=== PATIENT | female | born 1945 | race Caucasian/White ===

== ENCOUNTER 2016-08-09 14:41 | Outpatient (CLI) | payer MEDICARE, MEDICAID ==
[2016-08-09 14:56] LABS: #Lymphocytes 0.9 thou/uL (1.20-3.40); #Monocytes 0.2 thou/uL (0.11-0.59); #Neutrophils 7.8 thou/uL (1.40-6.50); %Basophils 0.5 % (0.0-1.0); %Eosinophils 0.1 % (0.0-10.0); %Lymphocytes 10.2 % (21.0-51.0); %Monocytes 2.5 % (0.0-10.0); %Neutrophils 86.6 % (42.0-75.0); Hemoglobin 16.4 g/dL (12.0-16.0); Mean Corpuscular HGB CONC 32.9 g/dL (32.0-36.0); Mean Corpuscular Hemoglobin 30.7 pg (27.0-31.0); Mean Corpuscular Volume 93.3 fl (81.0-99.0); Mean Platelet Volume 8.6 fL (7.4-10.4); Platelet Count 145 thou/uL (130-400); RBC Distribution Width 14.6 % (11.5-14.5); Red Blood Cell (RBC) Count 5.33 mill/uL (4.20-5.40)
[2016-08-09 15:05] LABS: ALT (SGPT) 24 U/L (0-55); AST (SGOT) 19 U/L (5-34); Albumin 3.8 g/dL (3.4-4.8); Alkaline Phosphatase 85 U/L (40-150); Anion Gap 22 mmol/L (10-20); BUN (Urea Nitrogen) 27 mg/dL (9.8-20.1); Bilirubin, Total 0.5 mg/dL (0.2-1.2); Calc. Creatinine Clearance 0 mL/min (70-130); Calcium 9.3 mg/dL (7.8-10.44); Carbon Dioxide 22 mmol/L (23-31); Chloride 97 mmol/L (98-107); Estimated GFR-MDRD 47; Globulin 2.7 g/dL (2.4-3.5); Glucose 375 mg/dL (80-115); Potassium 4.9 mmol/L (3.5-5.1); Protein, Total 6.5 g/dL (5.8-8.1); Sodium 136 mmol/L (136-145)
== END 2016-08-09 14:42 | disposition home or self-care (01) ==
LOC: MADLAB 14:41
PROVIDERS: ATTEND Student in an Organized Health Care Education/Training Program
DX: G04.81 Other encephalitis and encephalomyelitis (principal)
CPT/HCPCS: 80053; 85025

== ENCOUNTER 2016-10-02 08:16 | Outpatient (CLI) | payer MEDICARE, OTHER ==
[2016-10-02 08:48] LABS: #Basophils 0.2 thou/uL (0.0-0.2); #Eosinphils 0.3 thou/uL (0.0-0.7); #Lymphocytes 4.3 thou/uL (1.20-3.40); #Monocytes 0.8 thou/uL (0.11-0.59); #Neutrophils 5.3 thou/uL (1.40-6.50); %Basophils 1.8 % (0.0-1.0); %Eosinophils 2.7 % (0.0-10.0); %Lymphocytes 39.2 % (21.0-51.0); %Monocytes 7.7 % (0.0-10.0); %Neutrophils 48.7 % (42.0-75.0); Hemoglobin 15.3 g/dL (12.0-16.0); Mean Corpuscular HGB CONC 33.9 g/dL (32.0-36.0); Mean Corpuscular Hemoglobin 32.2 pg (27.0-31.0); Mean Corpuscular Volume 94.8 fl (81.0-99.0); Mean Platelet Volume 8.9 fL (7.4-10.4); Platelet Count 140 thou/uL (130-400); RBC Distribution Width 13.6 % (11.5-14.5); Red Blood Cell (RBC) Count 4.75 mill/uL (4.20-5.40); White Blood Cell (WBC) Count 10.8 thou/uL (4.8-10.8)
[2016-10-02 08:54] LABS: Hemoglobin A1c 7.6 % (4.0-6.0)
[2016-10-02 08:59] LABS: ALT (SGPT) 22 U/L (0-55); AST (SGOT) 15 U/L (5-34); Albumin 3.7 g/dL (3.4-4.8); Alkaline Phosphatase 69 U/L (40-150); Anion Gap 16 mmol/L (10-20); BUN (Urea Nitrogen) 28 mg/dL (9.8-20.1); Bilirubin, Total 0.4 mg/dL (0.2-1.2); Calc. Creatinine Clearance 0 mL/min (70-130); Calcium 9.6 mg/dL (7.8-10.44); Carbon Dioxide 30 mmol/L (23-31); Cardiac Risk 2.3 (Less than 4.5); Chloride 100 mmol/L (98-107); Cholesterol 136 mg/dL (< 200 Desired); Estimated GFR-MDRD 70; Globulin 2.6 g/dL (2.4-3.5); Glucose 116 mg/dL (80-115); HDL Cholesterol 59 mg/dL (>60 Neg Risk); LDL Cholesterol, Calculated 44 mg/dL; Potassium 3.5 mmol/L (3.5-5.1); Protein, Total 6.3 g/dL (5.8-8.1); Sodium 142 mmol/L (136-145)
[2016-10-02 09:09] LABS: Triglycerides 166 mg/dL (Less than 150)
[2016-10-02 17:28] LABS: Creatinine, Urine 126.97 mg/dL (47-110); Microalbumin Urine 2.7 mg/dL (0.5-50.0); Microalbumin/Creat Ratio 21.3 mg/g (Less than 30)
== END 2016-10-02 08:17 ==
LOC: MADLABBHPM 08:16
PROVIDERS: ATTEND Family Medicine
DX: E78.5 Hyperlipidemia, unspecified (principal); D64.9 Anemia, unspecified; E11.9 Type 2 diabetes mellitus without complications
CPT/HCPCS: 36415; 80053; 80061; 82043; 83036; 84443; 85025

== ENCOUNTER 2016-10-13 15:18 | Emergency (ER) | payer MEDICARE, OTHER ==
[2016-10-13] MEDS ORDERED: Tobramycin Sulfate 0.3% Ophth Susp 5 ml Bottle ONE (16:06)
== END 2016-10-13 16:21 | disposition home or self-care (01) ==
LOC: MADERS 15:18
DX: H10.9 Unspecified conjunctivitis (principal); E11.9 Type 2 diabetes mellitus without complications; I12.9 Hypertensive chronic kidney disease with stage 1 through stage 4 chronic kidney disease, or unspecified chronic kidney disease; N18.3 Chronic kidney disease, stage 3 (moderate); F03.90 Unspecified dementia, unspecified severity, without behavioral disturbance, psychotic disturbance, mood disturbance, and anxiety; F41.9 Anxiety disorder, unspecified; F32.9 Major depressive disorder, single episode, unspecified; Z79.4 Long term (current) use of insulin; Z79.899 Other long term (current) drug therapy; Z79.52 Long term (current) use of systemic steroids
CPT/HCPCS: 36416; 99284

== ENCOUNTER 2016-12-10 08:32 | Outpatient (CLI) | payer MEDICARE, OTHER ==
[2016-12-10 09:02] LABS: Hemoglobin A1c 7.7 % (4.0-6.0)
[2016-12-10 09:22] LABS: ALT (SGPT) 19 U/L (8-55); AST (SGOT) 16 U/L (5-34); Albumin 3.7 g/dL (3.4-4.8); Alkaline Phosphatase 64 U/L (40-150); Anion Gap 18 mmol/L (10-20); BUN (Urea Nitrogen) 21 mg/dL (9.8-20.1); Bilirubin, Total 0.6 mg/dL (0.2-1.2); Calc. Creatinine Clearance 0 mL/min (70-130); Calcium 9.4 mg/dL (7.8-10.44); Carbon Dioxide 27 mmol/L (23-31); Chloride 102 mmol/L (98-107); Estimated GFR-MDRD 59; Glucose 142 mg/dL (80-115); Potassium 4.1 mmol/L (3.5-5.1); Protein, Total 6.7 g/dL (6.0-8.3); Sodium 143 mmol/L (136-145)
== END 2016-12-10 08:33 | disposition home or self-care (01) ==
LOC: MADLABBHPM 08:32
PROVIDERS: ATTEND Family Medicine
DX: E11.65 Type 2 diabetes mellitus with hyperglycemia (principal)
CPT/HCPCS: 36415; 80053; 83036

== ENCOUNTER 2017-01-29 08:58 | Outpatient (CLI) | payer MEDICARE, MEDICAID ==
[2017-01-29 09:40] LABS: #Basophils 0.1 thou/uL (0.0-0.2); #Eosinphils 0.2 thou/uL (0.0-0.7); #Lymphocytes 1.5 thou/uL (1.20-3.40); #Monocytes 0.7 thou/uL (0.11-0.59); #Neutrophils 5.7 thou/uL (1.40-6.50); %Basophils 1.6 % (0.0-1.0); %Eosinophils 2.5 % (0.0-10.0); %Lymphocytes 17.9 % (21.0-51.0); %Monocytes 8.8 % (0.0-10.0); %Neutrophils 69.2 % (42.0-75.0); Hemoglobin 14.7 g/dL (12.0-16.0); Mean Corpuscular HGB CONC 33.2 g/dL (32.0-36.0); Mean Corpuscular Hemoglobin 32.3 pg (27.0-31.0); Mean Corpuscular Volume 97.5 fl (81.0-99.0); Mean Platelet Volume 9.2 fL (7.4-10.4); Platelet Count 150 thou/uL (130-400); RBC Distribution Width 14.1 % (11.5-14.5); Red Blood Cell (RBC) Count 4.53 mill/uL (4.20-5.40); White Blood Cell (WBC) Count 8.2 thou/uL (4.8-10.8)
[2017-01-29 10:15] LABS: ALT (SGPT) 19 U/L (8-55); AST (SGOT) 26 U/L (5-34); Albumin 3.6 g/dL (3.4-4.8); Alkaline Phosphatase 67 U/L (40-150); Anion Gap 14 mmol/L (10-20); BUN (Urea Nitrogen) 19 mg/dL (9.8-20.1); Bilirubin, Total 0.9 mg/dL (0.2-1.2); CRP (Inflammatory) Less than 0.50 mg/dL (= or < 0.5); Calc. Creatinine Clearance 0 mL/min (70-130); Calcium 9.2 mg/dL (7.8-10.44); Carbon Dioxide 27 mmol/L (23-31); Chloride 103 mmol/L (98-107); Estimated GFR-MDRD 64; Globulin 2.7 g/dL (2.4-3.5); Glucose 121 mg/dL (80-115); Potassium 3.4 mmol/L (3.5-5.1); Protein, Total 6.3 g/dL (6.0-8.3); Sodium 141 mmol/L (136-145)
== END 2017-01-29 08:59 | disposition home or self-care (01) ==
LOC: MADLABBHPM 08:58
PROVIDERS: ATTEND Student in an Organized Health Care Education/Training Program
DX: R22.40 Localized swelling, mass and lump, unspecified lower limb (principal)
CPT/HCPCS: 36415; 80053; 85025; 85652; 86140; 86160

== ENCOUNTER 2017-03-07 08:41 | Outpatient (CLI) | payer MEDICARE, MEDICAID ==
[2017-03-07 09:29] LABS: #Basophils 0.2 thou/uL (0.0-0.2); #Eosinphils 0.3 thou/uL (0.0-0.7); #Lymphocytes 1.6 thou/uL (1.20-3.40); #Monocytes 0.9 thou/uL (0.11-0.59); #Neutrophils 6.9 thou/uL (1.40-6.50); %Basophils 1.9 % (0.0-1.0); %Eosinophils 3.4 % (0.0-10.0); %Lymphocytes 16.1 % (21.0-51.0); %Monocytes 8.7 % (0.0-10.0); %Neutrophils 69.8 % (42.0-75.0); Hemoglobin 14.7 g/dL (12.0-16.0); Mean Corpuscular HGB CONC 32.1 g/dL (32.0-36.0); Mean Corpuscular Hemoglobin 31.2 pg (27.0-31.0); Mean Corpuscular Volume 97.1 fl (81.0-99.0); Mean Platelet Volume 10.3 fL (7.4-10.4); Platelet Count 176 thou/uL (130-400); RBC Distribution Width 14.1 % (11.5-14.5); Red Blood Cell (RBC) Count 4.72 mill/uL (4.20-5.40); White Blood Cell (WBC) Count 9.9 thou/uL (4.8-10.8)
[2017-03-07 09:39] LABS: ALT (SGPT) 14 U/L (8-55); AST (SGOT) 16 U/L (5-34); Albumin 3.8 g/dL (3.4-4.8); Alkaline Phosphatase 78 U/L (40-150); Anion Gap 16 mmol/L (10-20); BUN (Urea Nitrogen) 21 mg/dL (9.8-20.1); Bilirubin, Total 0.8 mg/dL (0.2-1.2); Calc. Creatinine Clearance 0 mL/min (70-130); Calcium 9.5 mg/dL (7.8-10.44); Carbon Dioxide 29 mmol/L (23-31); Cardiac Risk 2.4 (Less than 4.5); Chloride 104 mmol/L (98-107); Cholesterol 105 mg/dl (< 200 Desired); Estimated GFR-MDRD 65; Globulin 3.2 g/dL (2.4-3.5); Glucose 118 mg/dL (80-115); HDL Cholesterol 44 mg/dL (>60 Neg Risk); LDL Cholesterol, Calculated 38 mg/dL; Potassium 3.4 mmol/L (3.5-5.1); Sodium 146 mmol/L (136-145); Triglycerides 113 mg/dL (Less than 150)
[2017-03-07 09:40] LABS: Hemoglobin A1c 6.1 % (4.0-6.0)
[2017-03-07 09:52] LABS: Free T4 (Free Thyroxine) 0.9 ng/dL (0.70-1.48); Thyroid Stimulating Hormone 3.9807 uIU/mL (0.35-4.94)
[2017-03-07 16:57] LABS: Creatinine, Urine 27.78 mg/dL (47-110); Microalbumin Urine 1.5 mg/dL (0.5-50.0)
== END 2017-03-07 08:42 | disposition home or self-care (01) ==
LOC: MADLAB 08:41
PROVIDERS: ATTEND Family Medicine
DX: E11.65 Type 2 diabetes mellitus with hyperglycemia (principal); E78.5 Hyperlipidemia, unspecified; D64.9 Anemia, unspecified; R22.40 Localized swelling, mass and lump, unspecified lower limb
CPT/HCPCS: 36415; 80053; 80061; 82043; 82728; 83036; 83540; 84439; 84443; 85025

== ENCOUNTER 2017-03-12 13:43 | Inpatient (IN) | payer MEDICARE, MEDICAID ==
[~2017-03-12 13:43] MED LIST: Sodium Chloride 0.9% 100 ML BAG ONE
[2017-03-12 15:55] LABS: #Basophils 0.1 thou/uL (0.0-0.2); #Eosinphils 0.1 thou/uL (0.0-0.7); #Lymphocytes 1.4 thou/uL (1.20-3.40); #Monocytes 0.6 thou/uL (0.11-0.59); #Neutrophils 4.5 thou/uL (1.40-6.50); %Basophils 1.4 % (0.0-1.0); %Eosinophils 1.4 % (0.0-10.0); %Lymphocytes 20.4 % (21.0-51.0); %Monocytes 9.4 % (0.0-10.0); %Neutrophils 67.4 % (42.0-75.0); Hemoglobin 13.9 g/dL (12.0-16.0); Mean Corpuscular HGB CONC 32.3 g/dL (32.0-36.0); Mean Corpuscular Hemoglobin 30.9 pg (27.0-31.0); Mean Corpuscular Volume 95.6 fl (81.0-99.0); Mean Platelet Volume 10.7 fL (7.4-10.4); Platelet Count 201 thou/uL (130-400); RBC Distribution Width 14.2 % (11.5-14.5); White Blood Cell (WBC) Count 6.7 thou/uL (4.8-10.8)
[2017-03-12 16:01] LABS: INR-International Normal Ratio 1.1; Prothrombin Time 13.9 SEC (12.0-14.7)
[2017-03-12 16:18] LABS: ALT (SGPT) 15 U/L (8-55); AST (SGOT) 21 U/L (5-34); Albumin 3.6 g/dL (3.4-4.8); Alkaline Phosphatase 88 U/L (40-150); Anion Gap 14 mmol/L (10-20); BUN (Urea Nitrogen) 16 mg/dL (9.8-20.1); Bilirubin, Total 0.5 mg/dL (0.2-1.2); CK (CPK) 75 U/L (29-168); Calc. Creatinine Clearance 0 mL/min (70-130); Calcium 8.8 mg/dL (7.8-10.44); Carbon Dioxide 29 mmol/L (23-31); Chloride 102 mmol/L (98-107); Estimated GFR-MDRD 62; Globulin 2.5 g/dL (2.4-3.5); Glucose 240 mg/dL (80-115); Potassium 4.3 mmol/L (3.5-5.1); Protein, Total 6.1 g/dL (6.0-8.3); Sodium 141 mmol/L (136-145)
--- NOTE | 2017-03-12 16:19 | RAD ---
PORTABLE CHEST ONE VIEW: 03/12/17 at 3:54 p.m. HISTORY: Fluid retention. FINDINGS: Comparison made to exam of 12/08/15. The heart is enlarged. There is continued elevation of the right hemidiaphragm. No confluent areas o f consolidation or pneumothorax, alec pulmonary edema or pleural effusions are seen. IMPRESSION: No acute process. POS: [facility]
[2017-03-12 16:20] LABS: CKMB 1.6 ng/mL (0-6.6); Troponin I Less than 0.010 ng/mL (< 0.028)
[2017-03-12] MEDS ORDERED: Ketorolac Tromethamine 30 MG/ML VIAL ONE (17:09)
[2017-03-12] MEDS ORDERED: Ondansetron HCl/PF 4 MG/2 ML Vial ONE (17:09)
[2017-03-12] MEDS ORDERED: Dexamethasone 10 MG/ML VIAL ONE (17:28)
[2017-03-12] MEDS ORDERED: methylPREDNISolone Sod Succ/PF 125 MG/2 ML VIAL ONE (17:28)
[2017-03-12 18:02] LABS: Bilirubin Negative (Negative); Blood, Urine Negative (Negative); Clarity Clear (Clear); Glucose, Urine (Dipstick) Negative (Negative); Leukocyte Negative (Negative); Nitrite Negative (Negative); Protein, Urine (Dipstick) Negative (Neg-Trace); Urobilinogen 0.2 mg/dL (0.2-1.0)
[2017-03-12 18:03] LABS: RBC/HPF 0-3 HPF (0-3)
[2017-03-12 18:04] LABS: Bacteria/HPF Rare-Few HPF (None Seen); WBC/HPF 0-3 HPF (0-3)
[2017-03-12] MEDS ORDERED: Enoxaparin Sodium 40 MG/0.4 ML SYRINGE ONE (19:00)
--- NOTE | 2017-03-12 19:34 | RAD ---
FOUR VIEWS OF THE RIGHT KNEE: 03/12/17 COMPARISON: None. HISTORY: Right knee pain with swelling. FINDINGS: Four views of the right knee shows no evidence of acute fracture or dislocation. Severe diffuse soft tissue swelling is seen. No significant degenerative changes are seen. No knee effusion is seen. IMPRESSION: Soft tissue swelling without underlying osseous abnormality. POS: [facility]
[2017-03-13] MEDS ORDERED: Dextrose 5% in Water 1,000 ML IV PRN (00:20)
[2017-03-13] MEDS ORDERED: Dextrose 50% Abboject 50 ML SYRINGE IVP PRN (00:21)
[2017-03-13] MEDS ORDERED: Furosemide 20 MG/2 ML VIAL SLOW IVP SCH (00:30)
[2017-03-13] MEDS ORDERED: predniSONE 20 MG TAB PO SCH ×3 (01:30→09:30)
[2017-03-13] MEDS ORDERED: Bisacodyl 5 MG TAB PO PRN (01:37)
[2017-03-13] MEDS ORDERED: Zolpidem Tartrate 5 MG TAB PO PRN ×2 (01:37→10:07)
[2017-03-13] MEDS ORDERED: Loperamide HCl 2 MG CAP PO PRN ×2 (01:37)
[2017-03-13] MEDS ORDERED: Ondansetron HCl/PF 4 MG/2 ML Vial SLOW IVP PRN (01:37)
[2017-03-13] MEDS ORDERED: HYDROcodone/Acetaminophen 10/325 mg Tablet PO PRN (01:37)
[2017-03-13 02:11] VITALS: BMI 40.5
[2017-03-13 05:29] LABS: #Lymphocytes 0.7 thou/uL (1.20-3.40); #Monocytes 0.3 thou/uL (0.11-0.59); #Neutrophils 6.5 thou/uL (1.40-6.50); %Basophils 0.5 % (0.0-1.0); %Lymphocytes 9.8 % (21.0-51.0); %Monocytes 3.5 % (0.0-10.0); %Neutrophils 86.1 % (42.0-75.0); Hemoglobin 14.3 g/dL (12.0-16.0); Mean Corpuscular HGB CONC 33.3 g/dL (32.0-36.0); Mean Platelet Volume 9.8 fL (7.4-10.4); Platelet Count 177 thou/uL (130-400); RBC Distribution Width 13.8 % (11.5-14.5); Red Blood Cell (RBC) Count 4.47 mill/uL (4.20-5.40); White Blood Cell (WBC) Count 7.5 thou/uL (4.8-10.8)
[2017-03-13 05:41] LABS: ALT (SGPT) 13 U/L (8-55); AST (SGOT) 14 U/L (5-34); Albumin 3.5 g/dL (3.4-4.8); Alkaline Phosphatase 72 U/L (40-150); Anion Gap 14 mmol/L (10-20); BUN (Urea Nitrogen) 19 mg/dL (9.8-20.1); Bilirubin, Total 0.4 mg/dL (0.2-1.2); Calc. Creatinine Clearance 94 mL/min (70-130); Carbon Dioxide 29 mmol/L (23-31); Chloride 103 mmol/L (98-107); Estimated GFR-MDRD 59; Globulin 3.1 g/dL (2.4-3.5); Glucose 237 mg/dL (80-115); Potassium 4.7 mmol/L (3.5-5.1); Protein, Total 6.6 g/dL (6.0-8.3); Sodium 141 mmol/L (136-145)
[2017-03-13] MEDS: HumaLOG 300 UNITS/3 ML VIAL SC PRN ×3 (07:56→22:15)
[2017-03-13] MEDS: Enoxaparin Sodium 40 MG/0.4 ML SYRINGE SC SCH (07:59)
[2017-03-13] MEDS ORDERED: Ketotifen Fumarate 0.025% Ophth Soln 5 ml Bottle EA EYE PRN (08:30)
[2017-03-13] MEDS ORDERED: Acetaminophen 325 MG TAB PO PRN (08:30)
[2017-03-13] MEDS ORDERED: cloNIDine HCl 0.1 MG TAB PO PRN (08:30)
[2017-03-13] MEDS ORDERED: Melatonin 3 MG TAB PO PRN (08:30)
[2017-03-13] MEDS ORDERED: Furosemide 40 MG TAB PO SCH (09:00)
[2017-03-13] MEDS ORDERED: predniSONE 10 MG TAB PO SCH (09:00)
[2017-03-13] MEDS ORDERED: Pantoprazole 40 MG VIAL IVP SCH (09:00)
[2017-03-13] MEDS ORDERED: Mag-Al Plus 1200 MG/1200 MG/120 MG/30 ML UDCUP PO PRN (09:06)
[2017-03-13] MEDS ORDERED: Furosemide 40 MG/4 ML VIAL SLOW IVP SCH (09:30)
[2017-03-13] MEDS ORDERED: Sodium Chloride 0.9% 10 ML ONE (09:49)
[2017-03-13] MEDS: Levemir Flexpen 100 UNITS/ML PEN SC SCH (09:55)
[2017-03-13] MEDS: Famotidine 20 MG TAB PO SCH ×2 (09:56→22:10)
[2017-03-13] MEDS: Doxepin HCl 25 MG CAP PO SCH (09:56)
[2017-03-13] MEDS: Loratadine 10 MG TAB PO SCH (09:56)
[2017-03-13] MEDS: Pregabalin 50 MG CAP PO SCH ×2 (09:57→22:11)
[2017-03-13] MEDS: HYDROcodone/Acetaminophen 10/325 mg Tablet PO PRN ×3 (09:58→22:14)
[2017-03-13] MEDS: azaTHIOprine 50 MG TAB PO SCH ×2 (09:59→22:11)
[2017-03-13] MEDS: Hydroxychloroquine Sulfate 200 MG TAB PO SCH ×2 (10:00→22:13)
[2017-03-13] MEDS: Ferrous Sulfate 325 MG TAB PO SCH ×2 (10:00→22:11)
[2017-03-13] MEDS: Potassium Chloride 20 MEQ TAB PO SCH (10:00)
[2017-03-13] MEDS: Losartan Potassium 25 MG TAB PO SCH (10:01)
[2017-03-13] MEDS: risperiDONE 0.5 MG TAB PO SCH ×3 (10:02→22:13)
[2017-03-13] MEDS: Escitalopram Oxalate 10 mg Tablet PO SCH (10:02)
[2017-03-13] MEDS: Metoprolol Tartrate 50 MG TAB PO SCH ×2 (10:02→22:10)
[2017-03-13] MEDS: Bupropion 100 MG SR TAB PO SCH (10:10)
[2017-03-13] MEDS: Atorvastatin Calcium 10 MG TAB PO SCH (22:08)
[2017-03-13] MEDS: NUEDEXTA PO SCH (22:10)
--- NOTE | 2017-03-13 23:30 | HP ---
ATTENDING PHYSICIAN: Ritika Jerez M.D. HISTORY OF PRESENT ILLNESS: Ms. Moscoso is a very pleasant 71-year-old female with multiple chronic medical conditions including lupus, neuropathic pain, hypertension, chronic leg edema, arthritis and chronic kidney disease. Patient has had history of unsteady gait. She has been staying in her wheelchair lately. Patient reports significant weight gain since she started residing in assisted living. She blames weight gain from the chronic use of high dose steroids for lupus cerebritis. Her neurologist, Dr. Alise Delgado, has been titrating her oral steroid down lately and currently on 10 mg p.o. daily. The patient reports that she has been retaining fluids. When she was seen in the clinic on 03/10/2017, here Lasix was increased to 40 mg p.o. daily as there was a significant evidence of volume retention on both lower legs with both lower legs having pitted skin up. She was sent to the ER from the assisted living facility yesterday due to a complaint of sudden onset of right knee pain. Patient states that there was tightness in the medial side of the right knee. There was no significant erythema or joint effusion. She just complained that the knee is hurting and legs are swollen. Patient reports that she cannot bend her knee at all today due to pain. Xray of the knee showed evidence of soft tissue swelling without underlying osseous abnormality of the right knee x-ray. There is no significant degenerative changes seen, no joint effusion was seen. No evidence of acute fracture nor dislocation as well. Chest x-ray showed enlarged heart with continued elevation of the right hemidiaphragm, no confluence of consolidation or pneumothorax, alec pulmonary edema or pleural effusions are seen. Initial labs showed WBC of 6.7, hemoglobin 13.9, hematocrit 43 and platelets 201 with a BNP of 91.8, CK 68, BUN 16, creatinine 0.90, CK-MB 1.6 and troponin less than 0.08. C-reactive protein less than 0.50. PT 13.9, INR 1.1 and APTT 27. Urine was unremarkable. In the ER, patient received Duramorph, Decadron, Solu-Medrol, Toradol intravenous and Lovenox. Patient reports significant improvement of pain since , but wanting to be admitted for pain control. Thus steph was admitted in [facility] for arthralgia, acute gouty arthropathy, worsening volume retention and general weakness. Patient was started on [place] for pain control, high dose steroid for antiinflammatory and IV lasix for diuretic. Patient had a smooth course overnight. When seen, patient reports marked improvement of pain but there was some recurrence of pain noted this morning in the same area of the right knee. She again reports tightness on the right knee. Her legs remain ro have pitted edema. There is no significant chest pain, shortness of breath, pain with breathing, fever, cuff pain, erythema or leg claudication reported . No other new issues reported. PAST MEDICAL HISTORY: 1. Hypertension. 2. Depression. 3. Anxiety. 4. Neuropathic pain. 5. Hyperlipidemia. 6. Diabetes type 2 complicated. 7. History of recurrent complicated urinary tract infection. 8. Unsteady gait. 9. 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 10. History of chronic kidney disease stage 3. 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 12. Anemia, normocytic and normochromic, status post blood transfusion. 13. History of dysphagia, status post percutaneous endoscopic gastrostomy placement. 14. History of gastrointestinal bleed, rectal ulcer and ischemic colitis. 15. History of protein-calorie malnutrition. 16. History of ischemic colitis. 17. History of encephalopathy deemed secondary to lupus. PAST SURGICAL HISTORY: Tonsillectomy, adenectomy, status post percutaneous endoscopic gastrostomy tube placement and removal. FAMILY HISTORY: Daughter is alive with diabetes. SOCIAL HISTORY: Patient is a nonsmoker. Alcohol beverage drinker. She lives in [facility]. ALLERGIES: NKDA. MEDICATIONS: 1. Simvastatin 20 mg p.o. at bedtime. 2. Lantus 45 units subcu q. day. 3. NovoLog FlexPen for sliding scale coverage. 4. Acetaminophen 650 mg p.o. q.4 hours p.r.n. 5. Vitamin D3 q. day. 6. Lasix 40 mg p.o. daily. 7. Ranitidine 150 mg p.o. b.i.d. 8. Doxepin 50 mg p.o. daily. 9. Bupropion XR 300 mg p.o. daily. 10. Ferrous sulfate 325 mg p.o. daily. 11. Nuedexta 20/10 mg capsule q.12 hours. 12. Risperdal 0.5 mg p.o. 3 times a day. 13. Prednisone 10 mg p.o. daily. 14. Losartan 100 mg p.o. daily. 15. Metoprolol 50 mg p.o. b.i.d. 16. Clonidine 0.1 mg p.o. b.i.d. p.r.n. for blood pressure greater than or equal to systolic 180 and/or diastolic 100. 17. Melatonin 3 mg 1-2 tablets at bedtime. 18. Azathioprine 50 mg 2 tablets in the morning and 1 tablet at bedtime b.i.d. 19. Hydroxychloroquine 200 mg p.o. b.i.d. 20. Lyrica 50 mg p.o. b.i.d. 21. Loratadine 10 mg p.o. daily. REVIEW OF SYSTEMS: General: Denies fever, chills, reports general weakness and fatigue. HEENT: No acute visual changes or hearing changes, cold symptoms. Respiratory: No shortness of breath, cough, sputum production or bloody in sputum. Cardiovascular: Denies chest pain, dyspnea on exertion, paroxysmal nocturnal dyspnea or palpitations. Gastrointestinal: No nausea, vomiting, abdominal pain, diarrhea, constipation or rectal bleeding. Genitourinary: No dysuria, hematuria, frequency, urgency or incontinence. Musculoskeletal: As per HPI. Neurologic: No focal numbness or focal weakness. Psychiatric: Reports depressive symptoms and anxiety are stable with current medications. No hallucinations. No suicidal thoughts or ideations. PHYSICAL EXAMINATION: VITAL SIGNS: Temperature 98.4, pulse 79, respirations 16, O2 sats 94% and blood pressure 132/59. Weight 236 pounds. Height 5 feet 4 inches. GENERAL: The patient is awake, alert and oriented x3, not in distress. HEENT: Normocephalic and atraumatic. PERRL, intact. EOM. Nonicteric sclerae. Oral mucosa is moist. NECK: Supple. No LAD, no JVD, no bruit. CHEST: Normal excursion. Clear to auscultation bilaterally. CARDIAC: RRR. Normal S1 and S2. No murmurs. ABDOMEN: Obese, limiting exam. Normoactive bowel sounds. Nondistended and nontender. No rebound, no guarding. Negative cerebrovascular accident tenderness bilaterally. EXTREMITIES: Pitted bipedal edema up to the thigh. No obvious joint effusions. No erythema, no joint swelling. Tender to touch right medial and right anterior knee. Limited range of motion of the right knee secondary to discomfort/pain. Pulse 1+ bilaterally. NEUROLOGIC: Nonfocal. DTRs 2+. Unsteady gait. PSYCHIATRIC: Appears calm with appropriate demeanor and affect. Nonsuicidal. ASSESSMENT AND PLAN: 1. Acute arthropathy, right knee. 2. Bilateral leg edema. 3. Cardiomegaly by chest x-ray with normal BNP. 4. Diabetes type 2. 5. Hypertension. 6. Depression. 7. Anxiety. 8. Systemic lupus erythematosus, complicated with cerebritis, psychosis. 9. Neuropathic pain. 10. Dyslipidemia. 11. History of psychosis. 12. Unsteady gait. 13. General weakness/Deconditioning. PLAN: The patient is admitted to [facility] for supportive medical management. We will continue oral steroid and a taper the dose appropriately Close monitoring of Accu-Cheks secondary to steroid intake. We will continue current medications as modified per list. Gastrointestinal prophylaxis with Protonix. Deep venous thrombosis prophylaxis with Lovenox. We will continue IV diuretic then switch to oral accordingly. Serial electrolytes and renal monitoring. I's and O's weight monitoring. Further recommendations depending on the hospital course. EXPECTED LENGTH OF STAY: 2-3 days. CODE STATUS: FULL CODE. MTDD
[2017-03-14] MEDS ORDERED: predniSONE 20 MG TAB PO SCH ×3 (08:00→10:30)
[2017-03-14] MEDS: Enoxaparin Sodium 40 MG/0.4 ML SYRINGE SC SCH (08:27)
[2017-03-14] MEDS: Levemir Flexpen 100 UNITS/ML PEN SC SCH (08:27)
[2017-03-14] MEDS: NUEDEXTA PO SCH ×2 (08:28→20:35)
[2017-03-14] MEDS: Loratadine 10 MG TAB PO SCH (08:29)
[2017-03-14] MEDS: Bupropion 100 MG SR TAB PO SCH (08:29)
[2017-03-14] MEDS: Ferrous Sulfate 325 MG TAB PO SCH ×2 (08:29→20:38)
[2017-03-14] MEDS: Escitalopram Oxalate 10 mg Tablet PO SCH (08:30)
[2017-03-14] MEDS: Potassium Chloride 20 MEQ TAB PO SCH (08:30)
[2017-03-14] MEDS: Doxepin HCl 25 MG CAP PO SCH (08:30)
[2017-03-14] MEDS: Pregabalin 50 MG CAP PO SCH ×2 (08:30→20:36)
[2017-03-14] MEDS: risperiDONE 0.5 MG TAB PO SCH ×3 (08:30→20:38)
[2017-03-14] MEDS: Metoprolol Tartrate 50 MG TAB PO SCH (08:30)
[2017-03-14] MEDS: Losartan Potassium 25 MG TAB PO SCH (08:32)
[2017-03-14] MEDS: azaTHIOprine 50 MG TAB PO SCH ×2 (08:32→20:36)
[2017-03-14] MEDS: Hydroxychloroquine Sulfate 200 MG TAB PO SCH ×2 (08:32→20:38)
[2017-03-14] MEDS: Famotidine 20 MG TAB PO SCH ×2 (08:32→20:38)
[2017-03-14] MEDS: HYDROcodone/Acetaminophen 10/325 mg Tablet PO PRN (08:38)
[2017-03-14] MEDS ORDERED: Furosemide 20 MG TAB PO SCH (10:15)
[2017-03-14] MEDS: HumaLOG 300 UNITS/3 ML VIAL SC PRN ×2 (17:08→20:34)
[2017-03-14] MEDS: Atorvastatin Calcium 10 MG TAB PO SCH (20:35)
[2017-03-15] MEDS: Metoprolol Tartrate 50 MG TAB PO SCH ×2 (07:25→08:42)
[2017-03-15] MEDS ORDERED: predniSONE 20 MG TAB PO SCH (08:00)
[2017-03-15] MEDS: Bupropion 100 MG SR TAB PO SCH (08:40)
[2017-03-15] MEDS: Losartan Potassium 25 MG TAB PO SCH (08:40)
[2017-03-15] MEDS: azaTHIOprine 50 MG TAB PO SCH (08:41)
[2017-03-15] MEDS: risperiDONE 0.5 MG TAB PO SCH ×2 (08:41→15:24)
[2017-03-15] MEDS: Pregabalin 50 MG CAP PO SCH (08:41)
[2017-03-15] MEDS: Loratadine 10 MG TAB PO SCH (08:42)
[2017-03-15] MEDS: Ferrous Sulfate 325 MG TAB PO SCH (08:42)
[2017-03-15] MEDS: Hydroxychloroquine Sulfate 200 MG TAB PO SCH (08:42)
[2017-03-15] MEDS: Famotidine 20 MG TAB PO SCH (08:42)
[2017-03-15] MEDS: NUEDEXTA PO SCH (08:43)
[2017-03-15] MEDS: Escitalopram Oxalate 10 mg Tablet PO SCH (08:43)
[2017-03-15] MEDS: Doxepin HCl 25 MG CAP PO SCH (08:43)
[2017-03-15] MEDS: Potassium Chloride 20 MEQ TAB PO SCH (08:43)
[2017-03-15] MEDS: Enoxaparin Sodium 40 MG/0.4 ML SYRINGE SC SCH (08:44)
[2017-03-15] MEDS: Levemir Flexpen 100 UNITS/ML PEN SC SCH (08:44)
[2017-03-15] MEDS ORDERED: Furosemide 20 MG TAB PO SCH (09:00)
[2017-03-15] MEDS: HumaLOG 300 UNITS/3 ML VIAL SC PRN ×2 (11:59→17:18)
[2017-03-15 17:04] VITALS: BP 139/90; TEMP 98.6
== END 2017-03-15 17:43 | DRG 554 ==
LOC: MADERS 13:43 → MADMS 19:29
PROVIDERS: ADMIT Family Medicine; ATTEND Family Medicine
DX: M17.11 Unilateral primary osteoarthritis, right knee (principal); E46 Unspecified protein-calorie malnutrition; M32.19 Other organ or system involvement in systemic lupus erythematosus; E11.22 Type 2 diabetes mellitus with diabetic chronic kidney disease; E11.40 Type 2 diabetes mellitus with diabetic neuropathy, unspecified; N18.3 Chronic kidney disease, stage 3 (moderate); Z68.41 Body mass index [BMI] 40.0-44.9, adult; Z79.52 Long term (current) use of systemic steroids; R60.0 Localized edema; M10.9 Gout, unspecified; R60.9 Edema, unspecified; I51.7 Cardiomegaly; F41.9 Anxiety disorder, unspecified; F32.9 Major depressive disorder, single episode, unspecified; E78.5 Hyperlipidemia, unspecified; R26.81 Unsteadiness on feet; I12.9 Hypertensive chronic kidney disease with stage 1 through stage 4 chronic kidney disease, or unspecified chronic kidney disease; D64.9 Anemia, unspecified; R13.10 Dysphagia, unspecified; Z93.1 Gastrostomy status
CPT/HCPCS: 36415; 36416; 71010; 80053; 81001; 82550; 82553; 83880; 84484; 85025; 85610; 85652; 85730; 86140; 87077; 87086; 87186; 93005; 94760; 96365; 96372; 96375; 96376; A4216; C9113; J1100; J1650; J1815; J1885; J1940; J2270; J2405; J2930; J7050; J7500; J7506

== ENCOUNTER 2017-03-15 17:29 | Inpatient (IN) | payer MEDICARE, MEDICAID ==
[2017-03-15] MEDS ORDERED: Acetaminophen 325 MG TAB PO PRN (19:38)
[2017-03-15] MEDS ORDERED: Mag-Al Plus 1200 MG/1200 MG/120 MG/30 ML UDCUP PO PRN ×2 (19:38→20:24)
[2017-03-15] MEDS ORDERED: Melatonin 3 MG TAB PO PRN (19:38)
[2017-03-15] MEDS ORDERED: Bisacodyl 5 MG TAB PO PRN (19:38)
[2017-03-15] MEDS ORDERED: cloNIDine HCl 0.1 MG TAB PO PRN (19:38)
[2017-03-15] MEDS ORDERED: Ketotifen Fumarate 0.025% Ophth Soln 5 ml Bottle EA EYE PRN (19:38)
[2017-03-15] MEDS ORDERED: Loperamide HCl 2 MG CAP PO PRN ×2 (19:38)
[2017-03-15] MEDS ORDERED: Dextrose 5% in Water 1,000 ML IV PRN (19:56)
[2017-03-15] MEDS ORDERED: Dextrose 50% Abboject 50 ML SYRINGE SLOW IVP PRN (19:56)
[2017-03-15] MEDS ORDERED: Famotidine 20 MG TAB PO SCH (21:00)
[2017-03-15] MEDS ORDERED: QUINIDINE PO SCH (21:00)
[2017-03-15] MEDS ORDERED: DEXTROMETHORPHAN HBR PO SCH (21:00)
[2017-03-15] MEDS: Famotidine 20 MG TAB PO SCH (22:13)
[2017-03-15] MEDS: Atorvastatin Calcium 10 MG TAB PO SCH (22:13)
[2017-03-15] MEDS: azaTHIOprine 50 MG TAB PO SCH (22:13)
[2017-03-15] MEDS: Pregabalin 50 MG CAP PO SCH (22:14)
[2017-03-15] MEDS: Metoprolol Tartrate 50 MG TAB PO SCH (22:14)
[2017-03-15] MEDS: Hydroxychloroquine Sulfate 200 MG TAB PO SCH (22:14)
[2017-03-15] MEDS: risperiDONE 0.5 MG TAB PO SCH (22:16)
[2017-03-16] MEDS: Bupropion 100 MG SR TAB PO SCH (08:16)
[2017-03-16] MEDS: Famotidine 20 MG TAB PO SCH ×2 (08:17→20:24)
[2017-03-16] MEDS: Doxepin HCl 25 MG CAP PO SCH ×2 (08:17→08:21)
[2017-03-16] MEDS: Metoprolol Tartrate 50 MG TAB PO SCH ×2 (08:17→20:28)
[2017-03-16] MEDS: Loratadine 10 MG TAB PO SCH (08:17)
[2017-03-16] MEDS: risperiDONE 0.5 MG TAB PO SCH ×3 (08:18→20:30)
[2017-03-16] MEDS: Ferrous Sulfate 325 MG TAB PO SCH ×2 (08:18→17:05)
[2017-03-16] MEDS: predniSONE 20 MG TAB PO SCH (08:18)
[2017-03-16] MEDS: Escitalopram Oxalate 10 mg Tablet PO SCH (08:18)
[2017-03-16] MEDS: Furosemide 20 MG TAB PO SCH (08:18)
[2017-03-16] MEDS: Potassium Chloride 20 MEQ TAB PO SCH (08:18)
[2017-03-16] MEDS: Losartan Potassium 25 MG TAB PO SCH (08:19)
[2017-03-16] MEDS: Hydroxychloroquine Sulfate 200 MG TAB PO SCH ×2 (08:19→20:26)
[2017-03-16] MEDS: Pregabalin 50 MG CAP PO SCH ×2 (08:19→20:26)
[2017-03-16] MEDS: Levemir Flexpen 100 UNITS/ML PEN SC SCH (08:20)
[2017-03-16] MEDS: Enoxaparin Sodium 40 MG/0.4 ML SYRINGE SC SCH (08:21)
[2017-03-16] MEDS: HYDROcodone/Acetaminophen 10/325 mg Tablet PO PRN (08:34)
[2017-03-16] MEDS ORDERED: azaTHIOprine 50 MG TAB PO SCH (10:00)
[2017-03-16] MEDS: Insulin Regular 300 UNITS/3 ML VIAL SC PRN ×3 (11:52→20:41)
[2017-03-16] MEDS: Atorvastatin Calcium 10 MG TAB PO SCH (20:23)
[2017-03-16] MEDS: azaTHIOprine 50 MG TAB PO SCH (20:24)
[2017-03-17] MEDS: Ferrous Sulfate 325 MG TAB PO SCH ×2 (07:38→16:20)
[2017-03-17] MEDS: predniSONE 20 MG TAB PO SCH (07:39)
[2017-03-17] MEDS: HYDROcodone/Acetaminophen 10/325 mg Tablet PO PRN (08:12)
[2017-03-17] MEDS: Bupropion 100 MG SR TAB PO SCH (08:14)
[2017-03-17] MEDS: azaTHIOprine 50 MG TAB PO SCH ×2 (08:14→20:26)
[2017-03-17] MEDS: Doxepin HCl 25 MG CAP PO SCH ×2 (08:15→08:16)
[2017-03-17] MEDS: Enoxaparin Sodium 40 MG/0.4 ML SYRINGE SC SCH (08:17)
[2017-03-17] MEDS: Escitalopram Oxalate 10 mg Tablet PO SCH (08:18)
[2017-03-17] MEDS: Famotidine 20 MG TAB PO SCH ×2 (08:18→20:27)
[2017-03-17] MEDS: Hydroxychloroquine Sulfate 200 MG TAB PO SCH ×2 (08:19→20:28)
[2017-03-17] MEDS: Furosemide 20 MG TAB PO SCH (08:19)
[2017-03-17] MEDS: Levemir Flexpen 100 UNITS/ML PEN SC SCH (08:19)
[2017-03-17] MEDS: Losartan Potassium 25 MG TAB PO SCH (08:20)
[2017-03-17] MEDS: Loratadine 10 MG TAB PO SCH (08:20)
[2017-03-17] MEDS: Metoprolol Tartrate 50 MG TAB PO SCH ×2 (08:20→20:28)
[2017-03-17] MEDS: Potassium Chloride 20 MEQ TAB PO SCH (08:21)
[2017-03-17] MEDS: Pregabalin 50 MG CAP PO SCH ×2 (08:21→20:28)
[2017-03-17] MEDS: risperiDONE 0.5 MG TAB PO SCH ×3 (08:21→20:30)
[2017-03-17] MEDS ORDERED: Escitalopram Oxalate 10 mg Tablet PO SCH (09:00)
[2017-03-17] MEDS: Insulin Regular 300 UNITS/3 ML VIAL SC PRN ×2 (11:41→17:03)
[2017-03-17] MEDS: Atorvastatin Calcium 10 MG TAB PO SCH (20:26)
[2017-03-18 04:28] VITALS: BMI 38.6
[2017-03-18] MEDS: Enoxaparin Sodium 40 MG/0.4 ML SYRINGE SC SCH (08:18)
[2017-03-18] MEDS: Bupropion 100 MG SR TAB PO SCH (08:18)
[2017-03-18] MEDS: Escitalopram Oxalate 10 mg Tablet PO SCH (08:19)
[2017-03-18] MEDS: Hydroxychloroquine Sulfate 200 MG TAB PO SCH ×2 (08:19→20:13)
[2017-03-18] MEDS: Famotidine 20 MG TAB PO SCH ×2 (08:19→20:13)
[2017-03-18] MEDS: azaTHIOprine 50 MG TAB PO SCH ×2 (08:19→20:13)
[2017-03-18] MEDS: Loratadine 10 MG TAB PO SCH (08:20)
[2017-03-18] MEDS: risperiDONE 0.5 MG TAB PO SCH ×3 (08:20→20:14)
[2017-03-18] MEDS: Pregabalin 50 MG CAP PO SCH ×2 (08:20→20:13)
[2017-03-18] MEDS: Potassium Chloride 20 MEQ TAB PO SCH (08:20)
[2017-03-18] MEDS: predniSONE 20 MG TAB PO SCH (08:21)
[2017-03-18] MEDS: Losartan Potassium 25 MG TAB PO SCH (08:21)
[2017-03-18] MEDS: Furosemide 20 MG TAB PO SCH (08:22)
[2017-03-18] MEDS: Doxepin HCl 25 MG CAP PO SCH (08:22)
[2017-03-18] MEDS: Ferrous Sulfate 325 MG TAB PO SCH ×2 (08:23→17:02)
[2017-03-18] MEDS: Metoprolol Tartrate 50 MG TAB PO SCH ×2 (08:23→20:13)
[2017-03-18] MEDS: Levemir Flexpen 100 UNITS/ML PEN SC SCH (08:23)
[2017-03-18] MEDS ORDERED: predniSONE 20 MG TAB PO SCH (09:00)
[2017-03-18] MEDS: Insulin Regular 300 UNITS/3 ML VIAL SC PRN ×3 (11:49→20:23)
[2017-03-18] MEDS: Atorvastatin Calcium 10 MG TAB PO SCH (20:14)
[2017-03-18] MEDS: HYDROcodone/Acetaminophen 10/325 mg Tablet PO PRN (22:33)
[2017-03-18] MEDS: Zolpidem Tartrate 5 MG TAB PO PRN (22:36)
[2017-03-19] MEDS: Ferrous Sulfate 325 MG TAB PO SCH ×2 (08:18→16:43)
[2017-03-19] MEDS: azaTHIOprine 50 MG TAB PO SCH ×2 (08:19→21:04)
[2017-03-19] MEDS: predniSONE 20 MG TAB PO SCH (08:19)
[2017-03-19] MEDS: Famotidine 20 MG TAB PO SCH ×2 (08:20→21:05)
[2017-03-19] MEDS: Escitalopram Oxalate 10 mg Tablet PO SCH (08:20)
[2017-03-19] MEDS: Doxepin HCl 25 MG CAP PO SCH (08:20)
[2017-03-19] MEDS: Enoxaparin Sodium 40 MG/0.4 ML SYRINGE SC SCH (08:20)
[2017-03-19] MEDS: Bupropion 100 MG SR TAB PO SCH (08:20)
[2017-03-19] MEDS: Furosemide 20 MG TAB PO SCH (08:21)
[2017-03-19] MEDS: Hydroxychloroquine Sulfate 200 MG TAB PO SCH ×2 (08:21→21:04)
[2017-03-19] MEDS: Levemir Flexpen 100 UNITS/ML PEN SC SCH (08:21)
[2017-03-19] MEDS: Metoprolol Tartrate 50 MG TAB PO SCH ×2 (08:21→21:05)
[2017-03-19] MEDS: Losartan Potassium 25 MG TAB PO SCH (08:21)
[2017-03-19] MEDS: Potassium Chloride 20 MEQ TAB PO SCH (08:21)
[2017-03-19] MEDS: Loratadine 10 MG TAB PO SCH (08:21)
[2017-03-19] MEDS: Pregabalin 50 MG CAP PO SCH ×2 (08:22→21:04)
[2017-03-19] MEDS: risperiDONE 0.5 MG TAB PO SCH ×3 (08:22→21:04)
[2017-03-19] MEDS: Atorvastatin Calcium 10 MG TAB PO SCH (21:04)
[2017-03-19] MEDS: Insulin Regular 300 UNITS/3 ML VIAL SC PRN (21:05)
[2017-03-19] MEDS: Zolpidem Tartrate 5 MG TAB PO PRN (21:12)
[2017-03-19] MEDS: HYDROcodone/Acetaminophen 10/325 mg Tablet PO PRN (21:12)
[2017-03-20] MEDS: Levemir Flexpen 100 UNITS/ML PEN SC SCH (08:55)
[2017-03-20] MEDS: Enoxaparin Sodium 40 MG/0.4 ML SYRINGE SC SCH (08:55)
[2017-03-20] MEDS: Losartan Potassium 25 MG TAB PO SCH (08:56)
[2017-03-20] MEDS: azaTHIOprine 50 MG TAB PO SCH ×2 (08:56→20:24)
[2017-03-20] MEDS: Bupropion 100 MG SR TAB PO SCH (08:57)
[2017-03-20] MEDS: predniSONE 20 MG TAB PO SCH (08:57)
[2017-03-20] MEDS: Furosemide 20 MG TAB PO SCH (08:57)
[2017-03-20] MEDS: Hydroxychloroquine Sulfate 200 MG TAB PO SCH ×2 (08:57→20:25)
[2017-03-20] MEDS: Metoprolol Tartrate 50 MG TAB PO SCH ×2 (08:57→20:25)
[2017-03-20] MEDS: Loratadine 10 MG TAB PO SCH (08:57)
[2017-03-20] MEDS: Famotidine 20 MG TAB PO SCH ×2 (08:57→20:24)
[2017-03-20] MEDS: risperiDONE 0.5 MG TAB PO SCH ×3 (08:57→20:24)
[2017-03-20] MEDS: Pregabalin 50 MG CAP PO SCH ×2 (08:58→20:26)
[2017-03-20] MEDS: Escitalopram Oxalate 10 mg Tablet PO SCH (08:59)
[2017-03-20] MEDS: Ferrous Sulfate 325 MG TAB PO SCH ×2 (08:59→17:01)
[2017-03-20] MEDS: Potassium Chloride 20 MEQ TAB PO SCH (08:59)
[2017-03-20] MEDS: Doxepin HCl 25 MG CAP PO SCH (08:59)
[2017-03-20] MEDS: Insulin Regular 300 UNITS/3 ML VIAL SC PRN ×2 (11:54→17:01)
[2017-03-20] MEDS: Zolpidem Tartrate 5 MG TAB PO PRN (20:25)
[2017-03-20] MEDS: HYDROcodone/Acetaminophen 10/325 mg Tablet PO PRN (20:25)
[2017-03-20] MEDS: Atorvastatin Calcium 10 MG TAB PO SCH (20:25)
[2017-03-21] MEDS: Ferrous Sulfate 325 MG TAB PO SCH ×2 (07:23→16:27)
[2017-03-21] MEDS: predniSONE 20 MG TAB PO SCH (07:24)
[2017-03-21] MEDS: Pregabalin 50 MG CAP PO SCH ×2 (08:40→21:03)
[2017-03-21] MEDS: Potassium Chloride 20 MEQ TAB PO SCH (08:41)
[2017-03-21] MEDS: azaTHIOprine 50 MG TAB PO SCH ×2 (08:41→21:03)
[2017-03-21] MEDS: Bupropion 100 MG SR TAB PO SCH (08:41)
[2017-03-21] MEDS: Losartan Potassium 25 MG TAB PO SCH (08:42)
[2017-03-21] MEDS: risperiDONE 0.5 MG TAB PO SCH ×3 (08:42→21:03)
[2017-03-21] MEDS: Famotidine 20 MG TAB PO SCH ×2 (08:42→21:40)
[2017-03-21] MEDS: Doxepin HCl 25 MG CAP PO SCH (08:43)
[2017-03-21] MEDS: Loratadine 10 MG TAB PO SCH (08:43)
[2017-03-21] MEDS: Escitalopram Oxalate 10 mg Tablet PO SCH (08:43)
[2017-03-21] MEDS: Enoxaparin Sodium 40 MG/0.4 ML SYRINGE SC SCH (08:43)
[2017-03-21] MEDS: Metoprolol Tartrate 50 MG TAB PO SCH ×2 (08:43→21:01)
[2017-03-21] MEDS: Levemir Flexpen 100 UNITS/ML PEN SC SCH (08:44)
[2017-03-21] MEDS: Furosemide 20 MG TAB PO SCH (08:44)
[2017-03-21] MEDS: Hydroxychloroquine Sulfate 200 MG TAB PO SCH ×2 (08:44→21:03)
[2017-03-21] MEDS: Insulin Regular 300 UNITS/3 ML VIAL SC PRN (16:45)
[2017-03-21] MEDS: Atorvastatin Calcium 10 MG TAB PO SCH (21:03)
[2017-03-21] MEDS: Zolpidem Tartrate 5 MG TAB PO PRN (21:40)
[2017-03-21] MEDS: HYDROcodone/Acetaminophen 10/325 mg Tablet PO PRN (21:40)
[2017-03-22] MEDS: Loratadine 10 MG TAB PO SCH (08:19)
[2017-03-22] MEDS: Enoxaparin Sodium 40 MG/0.4 ML SYRINGE SC SCH (08:19)
[2017-03-22] MEDS: Losartan Potassium 25 MG TAB PO SCH (08:19)
[2017-03-22] MEDS: Bupropion 100 MG SR TAB PO SCH (08:19)
[2017-03-22] MEDS: Famotidine 20 MG TAB PO SCH ×2 (08:19→21:05)
[2017-03-22] MEDS: azaTHIOprine 50 MG TAB PO SCH ×2 (08:20→21:05)
[2017-03-22] MEDS: Metoprolol Tartrate 50 MG TAB PO SCH ×2 (08:21→21:07)
[2017-03-22] MEDS: Potassium Chloride 20 MEQ TAB PO SCH (08:21)
[2017-03-22] MEDS: Doxepin HCl 25 MG CAP PO SCH (08:21)
[2017-03-22] MEDS: Hydroxychloroquine Sulfate 200 MG TAB PO SCH ×2 (08:21→21:07)
[2017-03-22] MEDS: Furosemide 20 MG TAB PO SCH (08:22)
[2017-03-22] MEDS: predniSONE 20 MG TAB PO SCH (08:22)
[2017-03-22] MEDS: Ferrous Sulfate 325 MG TAB PO SCH ×2 (08:22→16:29)
[2017-03-22] MEDS: Levemir Flexpen 100 UNITS/ML PEN SC SCH (08:23)
[2017-03-22] MEDS: risperiDONE 0.5 MG TAB PO SCH ×3 (08:24→21:08)
[2017-03-22] MEDS: Pregabalin 50 MG CAP PO SCH ×2 (08:25→21:06)
[2017-03-22] MEDS: Escitalopram Oxalate 10 mg Tablet PO SCH (08:43)
[2017-03-22] MEDS: Insulin Regular 300 UNITS/3 ML VIAL SC PRN ×2 (12:14→16:33)
[2017-03-22] MEDS: Atorvastatin Calcium 10 MG TAB PO SCH (21:04)
[2017-03-22] MEDS: HYDROcodone/Acetaminophen 10/325 mg Tablet PO PRN (21:05)
[2017-03-23] MEDS: Losartan Potassium 25 MG TAB PO SCH (09:34)
[2017-03-23] MEDS: Loratadine 10 MG TAB PO SCH (09:35)
[2017-03-23] MEDS: Ferrous Sulfate 325 MG TAB PO SCH ×2 (09:35→17:52)
[2017-03-23] MEDS: Levemir Flexpen 100 UNITS/ML PEN SC SCH (09:37)
[2017-03-23] MEDS: azaTHIOprine 50 MG TAB PO SCH ×2 (09:52→20:18)
[2017-03-23] MEDS: Furosemide 20 MG TAB PO SCH (09:52)
[2017-03-23] MEDS: Enoxaparin Sodium 40 MG/0.4 ML SYRINGE SC SCH (09:52)
[2017-03-23] MEDS: predniSONE 20 MG TAB PO SCH (09:53)
[2017-03-23] MEDS: Doxepin HCl 25 MG CAP PO SCH (09:53)
[2017-03-23] MEDS: Potassium Chloride 20 MEQ TAB PO SCH (09:54)
[2017-03-23] MEDS: Escitalopram Oxalate 10 mg Tablet PO SCH (09:54)
[2017-03-23] MEDS: Hydroxychloroquine Sulfate 200 MG TAB PO SCH ×2 (09:54→20:19)
[2017-03-23] MEDS: Metoprolol Tartrate 50 MG TAB PO SCH ×2 (09:54→20:19)
[2017-03-23] MEDS: Pregabalin 50 MG CAP PO SCH ×2 (09:55→20:19)
[2017-03-23] MEDS: risperiDONE 0.5 MG TAB PO SCH ×3 (09:55→20:19)
[2017-03-23] MEDS: Famotidine 20 MG TAB PO SCH ×2 (09:56→20:18)
[2017-03-23] MEDS: Bupropion 100 MG SR TAB PO SCH (10:01)
[2017-03-23] MEDS: HYDROcodone/Acetaminophen 10/325 mg Tablet PO PRN ×2 (10:02→20:20)
[2017-03-23] MEDS: Atorvastatin Calcium 10 MG TAB PO SCH (20:18)
[2017-03-23] MEDS: Zolpidem Tartrate 5 MG TAB PO PRN (20:19)
[2017-03-23] MEDS: Insulin Regular 300 UNITS/3 ML VIAL SC PRN (20:20)
[2017-03-24] MEDS: HYDROcodone/Acetaminophen 10/325 mg Tablet PO PRN ×3 (08:31→20:19)
[2017-03-24] MEDS: Furosemide 20 MG TAB PO SCH (08:32)
[2017-03-24] MEDS: Loratadine 10 MG TAB PO SCH (08:33)
[2017-03-24] MEDS: Ferrous Sulfate 325 MG TAB PO SCH ×2 (08:33→16:18)
[2017-03-24] MEDS: Potassium Chloride 20 MEQ TAB PO SCH (08:33)
[2017-03-24] MEDS: Escitalopram Oxalate 10 mg Tablet PO SCH (08:33)
[2017-03-24] MEDS: Famotidine 20 MG TAB PO SCH ×2 (08:33→20:18)
[2017-03-24] MEDS: risperiDONE 0.5 MG TAB PO SCH ×3 (08:33→20:19)
[2017-03-24] MEDS: Hydroxychloroquine Sulfate 200 MG TAB PO SCH ×2 (08:33→20:18)
[2017-03-24] MEDS: Bupropion 100 MG SR TAB PO SCH (08:34)
[2017-03-24] MEDS: Pregabalin 50 MG CAP PO SCH ×2 (08:34→20:19)
[2017-03-24] MEDS: azaTHIOprine 50 MG TAB PO SCH ×2 (08:34→20:18)
[2017-03-24] MEDS: Doxepin HCl 25 MG CAP PO SCH (08:34)
[2017-03-24] MEDS: Losartan Potassium 25 MG TAB PO SCH (08:35)
[2017-03-24] MEDS: predniSONE 20 MG TAB PO SCH (08:36)
[2017-03-24] MEDS: Levemir Flexpen 100 UNITS/ML PEN SC SCH (08:37)
[2017-03-24] MEDS: Metoprolol Tartrate 50 MG TAB PO SCH ×2 (08:37→20:18)
[2017-03-24] MEDS: Enoxaparin Sodium 40 MG/0.4 ML SYRINGE SC SCH (08:37)
[2017-03-24] MEDS: FLU VACC TS2017-18 (>65YR) 0.5 ML SYRINGE IM ONE (08:39)
[2017-03-24] MEDS: Insulin Regular 300 UNITS/3 ML VIAL SC PRN (16:18)
[2017-03-24] MEDS: Zolpidem Tartrate 5 MG TAB PO PRN (20:18)
[2017-03-24] MEDS: Atorvastatin Calcium 10 MG TAB PO SCH (20:18)
[2017-03-25] MEDS: azaTHIOprine 50 MG TAB PO SCH ×2 (09:19→20:30)
[2017-03-25] MEDS: Hydroxychloroquine Sulfate 200 MG TAB PO SCH ×2 (09:19→20:30)
[2017-03-25] MEDS: Bupropion 100 MG SR TAB PO SCH (09:19)
[2017-03-25] MEDS: predniSONE 20 MG TAB PO SCH (09:20)
[2017-03-25] MEDS: Ferrous Sulfate 325 MG TAB PO SCH ×2 (09:20→17:01)
[2017-03-25] MEDS: Loratadine 10 MG TAB PO SCH (09:20)
[2017-03-25] MEDS: Famotidine 20 MG TAB PO SCH ×2 (09:20→20:30)
[2017-03-25] MEDS: Losartan Potassium 25 MG TAB PO SCH (09:20)
[2017-03-25] MEDS: Furosemide 20 MG TAB PO SCH (09:21)
[2017-03-25] MEDS: Escitalopram Oxalate 10 mg Tablet PO SCH (09:21)
[2017-03-25] MEDS: risperiDONE 0.5 MG TAB PO SCH ×3 (09:21→20:30)
[2017-03-25] MEDS: Doxepin HCl 25 MG CAP PO SCH (09:21)
[2017-03-25] MEDS: HYDROcodone/Acetaminophen 10/325 mg Tablet PO PRN ×3 (09:21→20:31)
[2017-03-25] MEDS: Metoprolol Tartrate 50 MG TAB PO SCH ×2 (09:21→20:30)
[2017-03-25] MEDS: Potassium Chloride 20 MEQ TAB PO SCH (09:21)
[2017-03-25] MEDS: Enoxaparin Sodium 40 MG/0.4 ML SYRINGE SC SCH (09:22)
[2017-03-25] MEDS: Pregabalin 50 MG CAP PO SCH ×2 (09:22→20:30)
[2017-03-25] MEDS: Levemir Flexpen 100 UNITS/ML PEN SC SCH (09:22)
[2017-03-25] MEDS: FLU VACC TS2017-18 (>65YR) 0.5 ML SYRINGE IM ONE (10:00)
[2017-03-25] MEDS: Insulin Regular 300 UNITS/3 ML VIAL SC PRN (17:01)
[2017-03-25] MEDS: Zolpidem Tartrate 5 MG TAB PO PRN (20:30)
[2017-03-25] MEDS: Atorvastatin Calcium 10 MG TAB PO SCH (20:30)
[2017-03-26] MEDS: Loratadine 10 MG TAB PO SCH (08:23)
[2017-03-26] MEDS: Bupropion 100 MG SR TAB PO SCH (08:23)
[2017-03-26] MEDS: Doxepin HCl 25 MG CAP PO SCH (08:23)
[2017-03-26] MEDS: Famotidine 20 MG TAB PO SCH ×2 (08:24→20:54)
[2017-03-26] MEDS: Potassium Chloride 20 MEQ TAB PO SCH (08:24)
[2017-03-26] MEDS: azaTHIOprine 50 MG TAB PO SCH ×2 (08:24→20:55)
[2017-03-26] MEDS: Pregabalin 50 MG CAP PO SCH ×2 (08:25→20:55)
[2017-03-26] MEDS: risperiDONE 0.5 MG TAB PO SCH ×3 (08:26→20:50)
[2017-03-26] MEDS: Losartan Potassium 25 MG TAB PO SCH (08:26)
[2017-03-26] MEDS: Hydroxychloroquine Sulfate 200 MG TAB PO SCH ×2 (08:26→20:55)
[2017-03-26] MEDS: Furosemide 20 MG TAB PO SCH (08:26)
[2017-03-26] MEDS: predniSONE 20 MG TAB PO SCH (08:26)
[2017-03-26] MEDS: Metoprolol Tartrate 50 MG TAB PO SCH ×2 (08:27→20:54)
[2017-03-26] MEDS: Ferrous Sulfate 325 MG TAB PO SCH ×2 (08:27→17:01)
[2017-03-26] MEDS: Escitalopram Oxalate 10 mg Tablet PO SCH (08:27)
[2017-03-26] MEDS: Levemir Flexpen 100 UNITS/ML PEN SC SCH (08:27)
[2017-03-26] MEDS: Enoxaparin Sodium 40 MG/0.4 ML SYRINGE SC SCH (08:28)
[2017-03-26] MEDS: HYDROcodone/Acetaminophen 10/325 mg Tablet PO PRN ×3 (08:37→21:01)
[2017-03-26] MEDS: Insulin Regular 300 UNITS/3 ML VIAL SC PRN ×2 (17:02→20:57)
[2017-03-26] MEDS: Atorvastatin Calcium 10 MG TAB PO SCH (20:55)
[2017-03-26] MEDS: Zolpidem Tartrate 5 MG TAB PO PRN (21:01)
[2017-03-27] MEDS: predniSONE 20 MG TAB PO SCH (08:59)
[2017-03-27] MEDS: Ferrous Sulfate 325 MG TAB PO SCH ×2 (08:59→16:52)
[2017-03-27] MEDS: HYDROcodone/Acetaminophen 10/325 mg Tablet PO PRN ×2 (09:00→20:50)
[2017-03-27] MEDS: Hydroxychloroquine Sulfate 200 MG TAB PO SCH ×2 (09:00→20:48)
[2017-03-27] MEDS: Metoprolol Tartrate 50 MG TAB PO SCH ×2 (09:01→20:48)
[2017-03-27] MEDS: Bupropion 100 MG SR TAB PO SCH (09:02)
[2017-03-27] MEDS: azaTHIOprine 50 MG TAB PO SCH ×2 (09:02→20:47)
[2017-03-27] MEDS: Famotidine 20 MG TAB PO SCH ×2 (09:02→20:48)
[2017-03-27] MEDS: Losartan Potassium 25 MG TAB PO SCH (09:02)
[2017-03-27] MEDS: Pregabalin 50 MG CAP PO SCH ×2 (09:03→20:49)
[2017-03-27] MEDS: Levemir Flexpen 100 UNITS/ML PEN SC SCH (09:04)
[2017-03-27] MEDS: risperiDONE 0.5 MG TAB PO SCH ×3 (09:04→20:49)
[2017-03-27] MEDS: Potassium Chloride 20 MEQ TAB PO SCH (09:04)
[2017-03-27] MEDS: Loratadine 10 MG TAB PO SCH (09:04)
[2017-03-27] MEDS: Furosemide 20 MG TAB PO SCH (09:04)
[2017-03-27] MEDS: Doxepin HCl 25 MG CAP PO SCH (09:04)
[2017-03-27] MEDS: Escitalopram Oxalate 10 mg Tablet PO SCH (09:04)
[2017-03-27] MEDS: Insulin Regular 300 UNITS/3 ML VIAL SC PRN (17:02)
[2017-03-27 19:28] VITALS: BP 116/57
[2017-03-27] MEDS: Atorvastatin Calcium 10 MG TAB PO SCH (20:47)
[2017-03-27] MEDS: Zolpidem Tartrate 5 MG TAB PO PRN (20:49)
[2017-03-28 08:03] VITALS: TEMP 97.8
--- NOTE | 2017-03-29 18:34 | DIS ---
DATE OF ADMISSION: 03/15/2017 DATE OF DISCHARGE: 03/28/2017 ATTENDING PHYSICIAN: Ritika Jerez MD DISCHARGE DIAGNOSES: 1. Physical deconditioning. 2. Acute arthropathy of the right knee, improved. 3. Bilateral leg edema, possible congestive heart failure 4. Cardiomegaly by chest x-ray with normal BNP,with pending outpatient cardiac tests under Dr. Newton, SECONDARY DIAGNOSES: Diabetes type 2, hypertension, depression, anxiety, systemic lupus erythematosus complicated with cerebritis, psychosis, neuropathic pain, dyslipidemia, history of psychosis, and unsteady gait, uses walker. DISPOSITION: Home. CONDITION ON DISCHARGE: Stable. HOME MEDICATIONS: Acetaminophen 650 mg p.o. q.4 hours p.r.n., simvastatin 10 mg p.o. at bedtime, Wellbutrin SR 300 mg daily, cholecalciferol 1000 mg p.o. daily, doxepin 25 mg p.o. at bedtime, Lexapro 10 mg p.o. daily, famotidine 20 mg b.i.d., ferrous sulfate 325 mg b.i.d., furosemide 20 mg p.o. daily, hydroxychloroquine sulfate 200 mg p.o. b.i.d., Levemir 45 units every day, Novolin R per sliding scale, loratadine 10 mg p.o. daily, losartan 100 mg p.o. daily, melatonin 3 mg p.o. at bedtime, metoprolol 50 mg p.o. b.i.d., Lyrica 50 mg b.i.d., Imuran 100 mg p.o. q.a.m. and 50 mg p.o. at bedtime, clonidine 0.1 mg p.o. b.i.d. p.r.n. for systolic blood pressure greater than or equal to 180 and/or diastolic blood pressure greater than or equal to 105, prednisone 10 mg p.o. daily, risperidone 0.5 mg p.o. t.i.d., [place] 20 mg p.o. daily. DISCHARGE ISTRUCTION: DIET: Low salt, low fat, 2000 kilocalorie ADA. ACTIVITY: To use rolling walker at all times for ambulation and transfer, fall precautions. FOLLOWUP: 1. Follow up with Dr. Jerez in 1 week or sooner with concerns. 2. Follow up with Dr. Newton in 1 week or as previously scheduled for cardiac care. 3. Follow up with Dr. Ocampo in 3 to 4 weeks or as previously scheduled. 4. Follow up with [facility] and Dr. Hu for psychiatric care. ER precautions. HISTORY OF THE PRESENT ILLNESS AND HOSPITAL COURSE: Ms. Moscoso is a very pleasant 72-year-old female with multiple chronic medical conditions including neuropathic pain, SLE , hypertension, chronic leg edema, arthritis, chronic kidney disease, morbid obesity and diabetes. Patient had history and unsteady gait and chronic arthritis as part of SLE symptoms. She has been staying in the wheelchair lately at the assisted living where she resides. She reported significant weight gain in a gradual manner since she has been in the assisted living. She blames the weight gain from her chronic use of high dose steroids for her lupus cerebritis. Recently, her neurologist, Dr. Alise Delgado had titrated down her oral steroids to 10 mg p.o. daily and that is when patient started retaining fluids. She was in the clinic on 03/10/2017, her Lasix was increased to 40 mg from 20 mg daily, secondary to evidence of significant volume retention on both lower legs. The patient was seen in the ER on 03/12/2017 secondary to acute severe pain mostly on her medial side of the right knee. There was no significant erythema or joint effusions reported. Her x-ray was unremarkable except for evidence of soft tissue swelling without underlying osseous abnormality. There was no evidence of acute fracture and/or dislocation. Her chest x-ray showed cardiomegaly with continued elevation of the right hemidiaphragm. There was no alec or pulmonary edema or pleural effusion per Radiology report. Her BNP was 91.8 with a creatinine of 0.90 and BUN of 16. She was subsequently admitted for intractable knee pain and leg edema. at [facility]. The patient's arthralgia has significantly improved with IV steroid. Parenteral steroid was eventually switched to oral and eventually titrated down to her usual dose of prednisone 10 mg p.o. daily. She was transferred to [facility] for in [place] swing bed for skilled rehabilitation on 03/15/2017. Patient remarkably improved with her overall functional status. She was ambulatory using her RW prior to discharge. There was a reports from the nursing staff that there were times patient states she could not get out of bed on her own due to pain, but had seen got up and out of bed on her own without notifying the staff. She does this whenever she wanted to. She has had a cardiac evaluation with Dr. Newton as outpatient while she was in her rehab stay. She has a subsequent followup appointment today for further stress test.Further cardiac recommendations per Dr. Newton. On 03/28/2017, the patient was deemed stable to be discharged back to the Assisted Living facility, daughter was in agreement to this. She is deemed would benefit more for further outpatient therapy via Home health. Home health referral will be arranged prior to discharge. DISCHARGE VITAL EXAMINATION: Vital signs prior to discharge, blood pressure 116 /57, temperature 97.8, pulse 62, respirations 20, O2 sats 93% to 94%. Weight 225 pounds and 3 ounces, height 5 feet 4 inche MTDD
== END 2017-03-28 07:15 | DRG 554 ==
LOC: UNDOADMIN 19:17 → MADMS 19:17 → UNDODISIN 03-28 07:15
PROVIDERS: ADMIT Family Medicine; ATTEND Family Medicine
DX: M17.11 Unilateral primary osteoarthritis, right knee (principal); E11.618 Type 2 diabetes mellitus with other diabetic arthropathy; E11.22 Type 2 diabetes mellitus with diabetic chronic kidney disease; M32.19 Other organ or system involvement in systemic lupus erythematosus; I13.0 Hypertensive heart and chronic kidney disease with heart failure and stage 1 through stage 4 chronic kidney disease, or unspecified chronic kidney disease; I50.9 Heart failure, unspecified; N18.3 Chronic kidney disease, stage 3 (moderate); M10.9 Gout, unspecified; F32.9 Major depressive disorder, single episode, unspecified; F41.9 Anxiety disorder, unspecified; F29 Unspecified psychosis not due to a substance or known physiological condition; E78.5 Hyperlipidemia, unspecified; R26.81 Unsteadiness on feet; Z79.52 Long term (current) use of systemic steroids
CPT/HCPCS: 36416; 90471; 90682; G0008; G8978-GP-CK; G8979-GP-CI; J1650; J1815; J7500; J7506; Q2036

== ENCOUNTER 2017-06-20 19:43 | Outpatient (CLI) | payer MEDICARE, MEDICAID | END 2017-06-20 19:44 | disposition home or self-care (01) | LOC: MADLABBHPM 19:43 | PROVIDERS: ATTEND Family Medicine | DX: J02.9 Acute pharyngitis, unspecified (principal) | CPT/HCPCS: 87081; 87430 ==

== ENCOUNTER 2018-01-30 14:43 | Outpatient (CLI) | payer MEDICARE, MEDICAID ==
[2018-01-30 15:29] LABS: Anion Gap 16 mmol/L (10-20); BUN (Urea Nitrogen) 21 mg/dL (9.8-20.1); Calc. Creatinine Clearance 0 mL/min (70-130); Calcium 9.1 mg/dL (7.8-10.44); Carbon Dioxide 29 mmol/L (23-31); Chloride 99 mmol/L (98-107); Estimated GFR-MDRD 68; Glucose 176 mg/dL (83-110); Potassium 4.5 mmol/L (3.5-5.1); Sodium 139 mmol/L (136-145)
== END 2018-01-30 14:44 | disposition home or self-care (01) ==
LOC: MADLABBHPM 14:43
PROVIDERS: ATTEND Family Medicine
DX: R60.0 Localized edema (principal)
CPT/HCPCS: 36415; 80048

== ENCOUNTER 2018-02-02 13:36 | Outpatient (CLI) | payer MEDICARE, MEDICAID ==
--- NOTE | 2018-02-02 15:40 | RAD ---
CHEST TWO VIEWS: 02/02/18 HISTORY: Dyspnea. CHF. COMPARISON: 03/12/17 FINDINGS: The cardiac silhouette is enlarged. Pulmonary vasculature upper limits of normal. mediastinum midline with aortic calcification. No lobar consolidation, pneumothorax, or pleural fluid. IMPRESSION: Cardiomegaly. Atherosclerosis. POS: [facility]
== END 2018-02-02 13:37 | disposition home or self-care (01) ==
LOC: MADLAB 13:36
PROVIDERS: ATTEND Family Medicine
DX: I50.30 Unspecified diastolic (congestive) heart failure (principal); R60.0 Localized edema; I51.7 Cardiomegaly; I70.0 Atherosclerosis of aorta
CPT/HCPCS: 36415; 71046; 83880

== ENCOUNTER 2018-05-02 18:17 | Emergency (ER) | payer MEDICARE, OTHER ==
[2018-05-02 18:40] LABS: Bilirubin Large (Negative); Blood, Urine Large (Negative); Clarity Cloudy (Clear); Glucose, Urine (Dipstick) 100 mg/dL (Negative); Leukocyte Large (Negative); Nitrite Negative (Negative); Protein, Urine (Dipstick) > or equal to 300 mg/dL (Neg-Trace); pH, Urine 8.5 (5.0-9.0)
[2018-05-02 18:43] LABS: Bacteria/HPF Rare-Few HPF (None Seen); RBC/HPF GREATER THAN 50-TNTC HPF (0-3); Squamous Epithelial 0-3 HPF (0-3)
[2018-05-02] MEDS ORDERED: cefTRIAXone\\ROCEPHIN 1 GM VIAL ONE ×2 (18:57→19:08)
== END 2018-05-02 19:30 | disposition home or self-care (01) ==
LOC: MADERS 18:17
DX: N30.91 Cystitis, unspecified with hematuria (principal); E11.9 Type 2 diabetes mellitus without complications; I12.9 Hypertensive chronic kidney disease with stage 1 through stage 4 chronic kidney disease, or unspecified chronic kidney disease; N18.3 Chronic kidney disease, stage 3 (moderate); F41.9 Anxiety disorder, unspecified; F32.9 Major depressive disorder, single episode, unspecified; F03.90 Unspecified dementia, unspecified severity, without behavioral disturbance, psychotic disturbance, mood disturbance, and anxiety; Z79.899 Other long term (current) drug therapy; Z79.4 Long term (current) use of insulin; Z79.82 Long term (current) use of aspirin
CPT/HCPCS: 81003; 81015; 87077; 87086; 87186; 96374; J0696

== ENCOUNTER 2019-10-28 07:09 | Emergency (ER) | payer MEDICARE, OTHER ==
[2019-10-28] MEDS ORDERED: Adacel (T-DAP) 0.5 ML SYRINGE ONE (07:48)
[2019-10-28] MEDS ORDERED: Lidocaine 1% w/Epinephrine 1:100K 20 ML VIAL ONE (07:48)
[2019-10-28 08:28] LABS: INR-International Normal Ratio 1.1; PTT 32.2 SEC (22.9-36.1); Prothrombin Time 14.6 sec (12.0-14.7)
[2019-10-28 08:30] LABS: Anion Gap 15 mmol/L (10-20); BUN (Urea Nitrogen) 15 mg/dL (9.8-20.1); Calc. Creatinine Clearance 0 mL/min (70-130); Calcium 9.7 mg/dL (7.8-10.44); Carbon Dioxide 26 mmol/L (23-31); Chloride 101 mmol/L (98-107); Estimated GFR-MDRD 58; Glucose 84 mg/dL (83-110); Potassium 3.6 mmol/L (3.5-5.1); Sodium 138 mmol/L (136-145)
--- NOTE | 2019-10-28 08:30 | RAD ---
RIGHT TIBIA FIBULA 2 VIEWS: INDICATION: Fall. Laceration. FINDINGS: Tibia is poorly positioned in the AP projection. Mild degenerative change at the knee. No acute fra cture identified. IMPRESSION: No acute finding. Poor positioning in the AP projection limits projection. POS: [facility]
[2019-10-28 08:33] LABS: Hemoglobin 10.1 g/dL (12.0-16.0); Mean Corpuscular HGB CONC 29.2 g/dL (32.0-36.0); Mean Corpuscular Hemoglobin 21.1 pg (27.0-31.0); Mean Corpuscular Volume 72.3 fL (78.0-98.0); Platelet Count 233 thou/uL (130-400); RBC Distribution Width 17.5 % (11.5-14.5); Red Blood Cell (RBC) Count 4.79 mill/uL (4.20-5.40); White Blood Cell (WBC) Count 12.3 thou/uL (4.8-10.8)
[2019-10-28 08:34] LABS: Manual Diff?? YES
[2019-10-28 08:35] LABS: Anisocytosis SLIGHT = 6-15 cells (100X) (0-5/hpf); Lymphocytes 21 % (21-51); MDiff Complete? YES; Monocytes 10 % (0-10); Neutrophil 69 % (42-75); Platelet Morphology Comment Appears Adequate
--- NOTE | 2019-10-28 08:45 | CT ---
CT HEAD WITHOUT CONTRAST: Date: 10/28/2019 COMPARISON: None. HISTORY: Fall, trauma, pain. TECHNIQUE: Axial CT imaging at 5 mm intervals from vertex through skull base. Coronal and sagittal reformatted i maging obtained. FINDINGS: There is mild mucosal thickening involving the alveolar recess of the maxillary sinus on the left. Th e imaged paranasal sinuses and mastoid air cells are otherwise unremarkable. There is no displaced ca lvarial fracture. There are subcentimeter foci of hypodensity within bilateral cerebellar hemispheres inferiorly/gasoline attendant iorly suggesting areas of prior lacunar infarction. There is mild diffuse cerebral volume loss with a ssociated prominence of the CSF-containing spaces. Periventricular hypodensity noted, evidence of sma ll vessel disease. No intracranial hemorrhage, midline shift, or mass effect. IMPRESSION: No intracranial hemorrhage or displaced calvarial fracture. POS: [facility]
[2019-10-28] MEDS ORDERED: Triple Antibiotic Oint 1 GM Packet ONE (09:25)
== END 2019-10-28 10:03 | disposition home or self-care (01) ==
LOC: MADERS 07:09
DX: S81.811A Laceration without foreign body, right lower leg, initial encounter (principal); S41.121A Laceration with foreign body of right upper arm, initial encounter; D50.9 Iron deficiency anemia, unspecified; I13.0 Hypertensive heart and chronic kidney disease with heart failure and stage 1 through stage 4 chronic kidney disease, or unspecified chronic kidney disease; I50.9 Heart failure, unspecified; N18.4 Chronic kidney disease, stage 4 (severe); E86.0 Dehydration; E11.22 Type 2 diabetes mellitus with diabetic chronic kidney disease; F41.9 Anxiety disorder, unspecified; F32.9 Major depressive disorder, single episode, unspecified; W17.89XA Other fall from one level to another, initial encounter
CPT/HCPCS: 12035; 70450; 80048; 85025; 85610; 85730; 90471; 90715

== ENCOUNTER 2019-10-31 07:48 | Emergency (ER) | payer MEDICARE, MEDICAID ==
--- NOTE | 2019-10-31 08:22 | RAD ---
Exam:Right ankle 3 views HISTORY: Pain. Injury. COMPARISON: None FINDINGS: Mildly displaced distal fibular fracture. There is widening of the medial joint space sugge sting ligamentous injury. There is soft tissue swelling. Possibility of a medial open fracture cannot be excluded. Overlying bandage material is identified. IMPRESSION: Posttraumatic changes as above.
[2019-10-31] MEDS ORDERED: Sodium Chloride 0.9% 100 ML ONE (08:35)
[2019-10-31] MEDS ORDERED: Fentanyl 100 MCG/2 ML VIAL ONE (08:35)
[2019-10-31] MEDS ORDERED: cefTRIAXone\\ROCEPHIN 2 GM VIAL ONE (08:35)
[2019-10-31 09:01] LABS: INR-International Normal Ratio 1.1; PTT 23.3 SEC (22.9-36.1); Prothrombin Time 13.9 sec (12.0-14.7)
[2019-10-31] MEDS ORDERED: CEFAZOLIN 1 GM VIAL ONE (09:08)
[2019-10-31] MEDS ORDERED: Sodium Chloride 0.9% 200 ML ONE (09:09)
[2019-10-31 09:12] LABS: ALT (SGPT) 10 U/L (8-55); AST (SGOT) 12 U/L (5-34); Albumin 3.4 g/dL (3.4-4.8); Alkaline Phosphatase 71 U/L (40-110); Anion Gap 16 mmol/L (10-20); BUN (Urea Nitrogen) 22 mg/dL (9.8-20.1); Bilirubin, Total 0.3 mg/dL (0.2-1.2); Calc. Creatinine Clearance 0 mL/min (70-130); Calcium 10.1 mg/dL (7.8-10.44); Carbon Dioxide 25 mmol/L (23-31); Chloride 103 mmol/L (98-107); Estimated GFR-MDRD 32; Globulin 3.8 g/dL (2.4-3.5); Glucose 110 mg/dL (83-110); Potassium 4.1 mmol/L (3.5-5.1); Protein, Total 7.2 g/dL (6.0-8.3); Sodium 140 mmol/L (136-145)
[2019-10-31 09:22] LABS: Eosinophils 2 % (0-10); Hemoglobin 9.6 g/dL (12.0-16.0); Hypochromia SLIGHT = 6-15 cells (100X) (0-5/hpf); Lymphocytes 12 % (21-51); MDiff Complete? YES; Mean Corpuscular HGB CONC 29.5 g/dL (32.0-36.0); Mean Corpuscular Hemoglobin 21.4 pg (27.0-31.0); Mean Corpuscular Volume 72.4 fL (78.0-98.0); Mean Platelet Volume 7.5 fL (7.4-10.4); Microcytosis SLIGHT = 6-15 cells (100X) (0-5/hpf); Monocytes 7 % (0-10); Neutrophil 72 % (42-75); Platelet Count 214 thou/uL (130-400); Platelet Morphology Comment Appears Adequate; Polychromasia SLIGHT = 2-3 cells (100X) (0-2/hpf); RBC Distribution Width 17.5 % (11.5-14.5); Reactive Lymphocytes 7 % (0-10); Red Blood Cell (RBC) Count 4.49 mill/uL (4.20-5.40); White Blood Cell (WBC) Count 11.1 thou/uL (4.8-10.8)
== END 2019-10-31 09:45 | disposition short-term general hospital (02) ==
LOC: MADERS 07:48
DX: S82.831B Other fracture of upper and lower end of right fibula, initial encounter for open fracture type I or II (principal); W18.30XA Fall on same level, unspecified, initial encounter
CPT/HCPCS: 29515; 36415; 80053; 85025; 85610; 85730; 87086; 96365; 96375; J0690; J0696; J3010; J3490